=== PATIENT | male | born 1960 | race Caucasian/White ===

== ENCOUNTER 2017-08-26 17:02 | Emergency (ER) | payer MEDICAID ==
[2017-08-26] MEDS ORDERED: LIDOCAINE 2%/EPI MPF (SDV) 20 ML VIAL INJ (18:16)
[2017-08-26] MEDS: IBUPROFEN 800 MG TAB PO (18:16)
[2017-08-26] MEDS ORDERED: DIPHTH/TET/ACEL PERTUSS (ADULT) 0.5 ML VIAL IM (18:30)
[2017-08-26] MEDS ORDERED: DIAZEPAM 2 MG TAB PO (19:00)
== END 2017-08-26 19:32 | disposition home or self-care (01) ==
LOC: FTE 17:02
DX: S61.212A Laceration without foreign body of right middle finger without damage to nail, initial encounter (principal); F17.210 Nicotine dependence, cigarettes, uncomplicated; W26.0XXA Contact with knife, initial encounter; Y92.9 Unspecified place or not applicable
CPT/HCPCS: 12001; 90715; 99282-25

== ENCOUNTER 2017-10-22 12:42 | Emergency (ER) | payer MEDICAID ==
[2017-10-22] MEDS ORDERED: IBUPROFEN 800 MG TAB PO (14:00)
== END 2017-10-22 13:55 | disposition home or self-care (01) ==
LOC: FTE 12:42
DX: K40.90 Unilateral inguinal hernia, without obstruction or gangrene, not specified as recurrent (principal); Z87.891 Personal history of nicotine dependence
CPT/HCPCS: 99283; Z7502

== ENCOUNTER 2017-10-25 10:08 | Emergency (ER) | payer MEDICAID ==
[2017-10-25 10:28] LABS: ADD MAN DIFF? NO
[2017-10-25 10:30] LABS: BASOPHILS % 0.1 % (0.0-2.0); EOSINOPHILS # 0.1 10^3/ul (0.0-0.5); EOSINOPHILS % 1.3 % (0.0-7.0); HEMATOCRIT 48.9 % (42.0-52.0); HEMOGLOBIN 15.6 g/dl (14.0-18.0); LYMPHOCYTES # 0.7 10^3/ul (0.8-2.9); LYMPHOCYTES % 10.3 % (15.0-51.0); MEAN CORPUSCULAR HEMOGLOBIN 27.8 pg (29.0-33.0); MEAN CORPUSCULAR HGB CONC 31.9 g/dl (32.0-37.0); MEAN PLATELET VOLUME 9.8 fl (7.4-10.4); MONOCYTE # 0.5 10^3/ul (0.3-0.9); MONOCYTES % 7.4 % (0.0-11.0); NEUTROPHIL # 5.7 10^3/ul (1.6-7.5); NEUTROPHILS % 80.8 % (39.0-77.0); PLATELET COUNT 310 10^3/UL (140-415); RED BLOOD COUNT 5.62 10^6/ul (4.70-6.10)
[2017-10-25] MEDS: morphine 4 MG/ML VIAL IV (10:30)
[2017-10-25] MEDS: ONDANSETRON 4 MG INJ IV (10:30)
[2017-10-25] MEDS: SOD CHLORIDE 0.9% 1,000 ML IV (10:30)
[2017-10-25 10:51] LABS: ALBUMIN/GLOBULIN RATIO 1.21; ANION GAP 12 (8-16)
[2017-10-25 10:56] LABS: ALANINE AMINOTRANSFERASE 30 IU/L (13-69); ALKALINE PHOSPHATASE 97 IU/L (42-121); ASPARTATE AMINO TRANSFERASE 21 IU/L (15-46); BILIRUBIN,INDIRECT 0.8 mg/dl (0-1.1); BILIRUBIN,TOTAL 0.8 mg/dl (0.2-1.3); BLOOD UREA NITROGEN 13 mg/dl (7-20); CALCIUM 9.4 mg/dl (8.4-10.2); CARBON DIOXIDE 36 mmol/L (21-31); CHLORIDE 99 mmol/L (97-110); CREATININE 0.89 mg/dl (0.61-1.24); GLUCOSE 103 mg/dl (70-220); LIPASE 78 U/L (23-300); POTASSIUM 4.4 mmol/L (3.5-5.1); SODIUM 143 mmol/L (135-144); TOTAL PROTEIN 7.3 g/dl (6.1-8.1)
[2017-10-25 12:31] LABS: URINE BLOOD (Dip) POC Trace-intact (NEGATIVE); URINE GLUCOSE (Dip) POC Negative (NEGATIVE); URINE KETONES (Dip) POC 2+ (NEGATIVE); URINE LEUKOCYTE EST (Dip) POC Negative (NEGATIVE); URINE NITRITE (Dip) POC Negative (NEGATIVE); URINE TOTAL PROTEIN POC 1+ (NEGATIVE)
[2017-10-25 12:31] LABS: URINE PH (Dip) POC 6.5 (5.0-8.5)
[2017-10-25 12:47] LABS: ADD UMIC NO; UR ASCORBIC ACID 40 mg/dL (NEGATIVE); UR BILIRUBIN (Dip) NEGATIVE (NEGATIVE); UR BLOOD (Dip) NEGATIVE (NEGATIVE); UR CLARITY CLEAR (CLEAR); UR COLOR YELLOW (YELLOW); UR GLUCOSE (Dip) NEGATIVE (NEGATIVE); UR KETONES (Dip) 1+ mg/dL (NEGATIVE); UR LEUKOCYTE ESTERASE (Dip) NEGATIVE Leu/ul (NEGATIVE); UR NITRITE (Dip) NEGATIVE (NEGATIVE); UR SPECIFIC GRAVITY (Dip) 1.023 (1.003-1.030); UR TOTAL PROTEIN (Dip) NEGATIVE (NEGATIVE); UR UROBILINOGEN (Dip) NEGATIVE (NEGATIVE)
== END 2017-10-25 14:26 | disposition home or self-care (01) ==
LOC: E/R 10:08
DX: R10.32 Left lower quadrant pain (principal); R11.10 Vomiting, unspecified; Z87.891 Personal history of nicotine dependence
CPT/HCPCS: 36415; 74176; 80053; 81003; 83690; 85025; 96374; 99285-25

== ENCOUNTER 2018-01-15 15:31 | Emergency (ER) | payer OTHER, MEDICAID ==
[2018-01-15] MEDS: HYDROCODONE/APAP (10/325) TAB PO (15:42)
[2018-01-15] MEDS: ONDANSETRON (ODT) 4 MG TAB ODT (15:42)
== END 2018-01-15 16:38 | disposition home or self-care (01) ==
LOC: E/R 15:31
DX: S40.212A Abrasion of left shoulder, initial encounter (principal); S70.212A Abrasion, left hip, initial encounter; F17.210 Nicotine dependence, cigarettes, uncomplicated; V13.4XXA Pedal cycle driver injured in collision with car, pick-up truck or van in traffic accident, initial encounter
CPT/HCPCS: 73030; 73502; 73510; 99284-25

== ENCOUNTER 2018-02-23 11:37 | Observation (INO) | payer OTHER ==
[2018-02-23] MEDS: CEFAZOLIN 2 GM/50 ML (PMX) 50 ML IVPB (07:00)
[2018-02-23] MEDS: SOD CHLORIDE 0.9% 1,000 ML IV ×4 (07:00→23:11)
[~2018-02-23 11:37] MED LIST: LIDOCAINE 2% (SDV) 5 ML INJ; SUCCINYLCHOLINE CHLORIDE 100 MG/5 ML SYG IV
[2018-02-23] MEDS ORDERED: FENTAnyl 50 MCG/ML VIAL ×2 (15:16→16:21)
[2018-02-23] MEDS ORDERED: ROPIVACAINE 0.5 % 30 ML VIAL (15:18)
[2018-02-23] MEDS ORDERED: MEPERIDINE 25 MG INJ IV (15:30)
[2018-02-23] MEDS ORDERED: METOCLOPRAMIDE 10 MG INJ IV (15:30)
[2018-02-23] MEDS ORDERED: FENTAnyl 50 MCG/ML VIAL IV ×2 (15:30)
[2018-02-23] MEDS ORDERED: DIPHENHYDRAMINE 50 MG INJ IV (15:30)
[2018-02-23] MEDS ORDERED: ALBUTEROL 0.083% (NEB) 2.5 MG/3 ML AMP HHN (15:30)
[2018-02-23] MEDS ORDERED: HYDROmorphONE 1 MG/5 ML IV SYRINGE IV ×2 (15:30)
[2018-02-23] MEDS ORDERED: ONDANSETRON 4 MG INJ IV (15:30)
[2018-02-23] MEDS ORDERED: PHENYLephrine (100 MCG/ML) 5ML SYG (15:41)
[2018-02-23] MEDS ORDERED: ROCURONIUM 50 MG INJ (15:44)
[2018-02-23] MEDS ORDERED: PROPOFOL 20 ML (15:44)
[2018-02-23] MEDS ORDERED: CEFAZOLIN 1 GM INJ (15:44)
[2018-02-23] MEDS ORDERED: SUGAMMADEX SODIUM 200 MG/2 ML VIAL IV (15:44)
[2018-02-23] MEDS: POLYMYXIN/BACITRACIN 1L IRRIG IRR (15:56)
[2018-02-23] MEDS ORDERED: HYDROCODONE/APAP (10/325) TAB PO (16:30)
[2018-02-23] MEDS: HYDROmorphONE 1 MG/5 ML IV SYRINGE IV (17:02)
[2018-02-24] MEDS: morphine 2 MG INJ IV (07:22)
[2018-02-24] MEDS: SOD CHLORIDE 0.9% 1,000 ML IV (12:08)
== END 2018-02-24 15:49 | disposition home or self-care (01) ==
LOC: SDS 11:37 → REC 16:56 → PP2 17:43
DX: K40.30 Unilateral inguinal hernia, with obstruction, without gangrene, not specified as recurrent (principal)
CPT/HCPCS: 49507; 87081; 99217; G0378

== ENCOUNTER 2018-08-21 00:47 | Observation (INO) | payer OTHER ==
[2018-08-21] MEDS: ASPIRIN 325 MG TAB PO (02:29)
[2018-08-21] MEDS: morphine 4 MG/ML VIAL IV (02:29)
[2018-08-21] MEDS: ONDANSETRON 4 MG INJ IV (02:29)
[2018-08-21 02:37] LABS: ABNORMAL IP MESSAGE 1; ADD MAN DIFF? NO; BASOPHILS % 0.4 % (0.0-2.0); EOSINOPHILS # 0.4 10^3/ul (0.0-0.5); EOSINOPHILS % 5.7 % (0.0-7.0); HEMATOCRIT 46.6 % (42.0-52.0); HEMOGLOBIN 14.6 g/dl (14.0-18.0); LYMPHOCYTES # 0.5 10^3/ul (0.8-2.9); LYMPHOCYTES % 6.6 % (15.0-51.0); MEAN CORPUSCULAR HEMOGLOBIN 27.2 pg (29.0-33.0); MEAN CORPUSCULAR HGB CONC 31.3 g/dl (32.0-37.0); MEAN CORPUSCULAR VOLUME 86.9 fl (82.0-101.0); MEAN PLATELET VOLUME 9.6 fl (7.4-10.4); MONOCYTE # 0.4 10^3/ul (0.3-0.9); MONOCYTES % 4.9 % (0.0-11.0); NEUTROPHIL # 6.3 10^3/ul (1.6-7.5); PLATELET COUNT 234 10^3/UL (140-415); POSITIVE DIFF @See below; RED BLOOD COUNT 5.36 10^6/ul (4.70-6.10); RED CELL DISTRIBUTION WIDTH 13.5 % (11.5-14.5)
[2018-08-21 02:37] LABS: WHITE BLOOD COUNT 7.7 10^3/ul (4.8-10.8)
[2018-08-21 02:53] LABS: ALANINE AMINOTRANSFERASE 32 IU/L (13-69); ALBUMIN 4.3 g/dl (3.3-4.9); ALBUMIN/GLOBULIN RATIO 1.48; ALKALINE PHOSPHATASE 88 IU/L (42-121); ANION GAP 11 (5-13); ASPARTATE AMINO TRANSFERASE 30 IU/L (15-46); BILIRUBIN,INDIRECT 1.3 mg/dl (0-1.1); BILIRUBIN,TOTAL 1.3 mg/dl (0.2-1.3); BLOOD UREA NITROGEN 18 mg/dl (7-20); CALCIUM 9.5 mg/dl (8.4-10.2); CARBON DIOXIDE 28 mmol/L (21-31); CHLORIDE 102 mmol/L (97-110); CREATININE 1.03 mg/dl (0.61-1.24); Estimated GFR > 60 mL/min (>60); GLUCOSE 119 mg/dl (70-220); POTASSIUM 3.6 mmol/L (3.5-5.1); SODIUM 141 mmol/L (135-144); TOTAL PROTEIN 7.2 g/dl (6.1-8.1)
[2018-08-21 03:01] LABS: B-TYPE NATRIURETIC PEPTIDE 273 PG/ML (0-125)
[2018-08-21 03:06] LABS: TROPONIN-I < 0.012 ng/ml (0.000-0.120)
[2018-08-21] MEDS ORDERED: NITROGLYCERIN (SL) 0.4 MG TAB SL (07:00)
[2018-08-21] MEDS ORDERED: NACL 0.9% 3 ML SYG IV (07:00)
[2018-08-21 08:53] LABS: CREATINE KINASE 214 IU/L (23-200)
[2018-08-21 09:06] LABS: CK INDEX 1.3; TROPONIN-I < 0.012 ng/ml (0.000-0.120)
[2018-08-21 09:10] LABS: CK-MB 2.88 ng/ml (0.0-2.4)
[2018-08-21] MEDS: ACETAMINOPHEN 325 MG TAB PO (09:42)
[2018-08-21] MEDS: ASPIRIN 81 MG TAB PO (09:42)
[2018-08-21] MEDS: HEPARIN 5,000 UNIT/1 ML VIAL SC ×2 (09:44→21:32)
[2018-08-21] MEDS: SOD CHLORIDE 0.9% 500 ML IV (14:00)
[2018-08-21 16:59] LABS: CREATINE KINASE 177 IU/L (23-200)
[2018-08-21 17:12] LABS: CK INDEX 1.1; CK-MB 2.03 ng/ml (0.0-2.4)
[2018-08-21 17:40] LABS: TROPONIN-I < 0.012 ng/ml (0.000-0.120)
[2018-08-21] MEDS: ZOLPIDEM 5 MG TAB PO (22:14)
[2018-08-22] MEDS: ONDANSETRON 4 MG INJ IV (02:07)
[2018-08-22 06:12] LABS: ADD MAN DIFF? NO
[2018-08-22 06:24] LABS: WHITE BLOOD COUNT 7.5 10^3/ul (4.8-10.8)
[2018-08-22 06:25] LABS: BASOPHILS % 0.4 % (0.0-2.0); EOSINOPHILS # 0.6 10^3/ul (0.0-0.5); EOSINOPHILS % 7.7 % (0.0-7.0); HEMOGLOBIN 14.7 g/dl (14.0-18.0); LYMPHOCYTES # 0.8 10^3/ul (0.8-2.9); LYMPHOCYTES % 10.8 % (15.0-51.0); MEAN CORPUSCULAR HEMOGLOBIN 27.2 pg (29.0-33.0); MEAN CORPUSCULAR HGB CONC 31.3 g/dl (32.0-37.0); MEAN CORPUSCULAR VOLUME 86.9 fl (82.0-101.0); MEAN PLATELET VOLUME 9.9 fl (7.4-10.4); MONOCYTE # 0.5 10^3/ul (0.3-0.9); MONOCYTES % 6.3 % (0.0-11.0); NEUTROPHIL # 5.6 10^3/ul (1.6-7.5); NEUTROPHILS % 74.4 % (39.0-77.0); PLATELET COUNT 207 10^3/UL (140-415); RED BLOOD COUNT 5.41 10^6/ul (4.70-6.10); RED CELL DISTRIBUTION WIDTH 13.4 % (11.5-14.5)
[2018-08-22 07:03] LABS: ALANINE AMINOTRANSFERASE 29 IU/L (13-69); ALBUMIN 3.7 g/dl (3.3-4.9); ALBUMIN/GLOBULIN RATIO 1.27; ALKALINE PHOSPHATASE 83 IU/L (42-121); ANION GAP 12 (5-13); ASPARTATE AMINO TRANSFERASE 29 IU/L (15-46); BILIRUBIN,INDIRECT 0.9 mg/dl (0-1.1); BILIRUBIN,TOTAL 0.9 mg/dl (0.2-1.3); BLOOD UREA NITROGEN 14 mg/dl (7-20); CALCIUM 8.8 mg/dl (8.4-10.2); CARBON DIOXIDE 25 mmol/L (21-31); CHLORIDE 100 mmol/L (97-110); CHOLESTEROL 132 mg/dl (100-200); CREATININE 0.93 mg/dl (0.61-1.24); Estimated GFR > 60 mL/min (>60); GLUCOSE 89 mg/dl (70-220); HDL CHOLESTEROL 43 mg/dl (28-71); LDL CHOLESTEROL,CALCULATED 72 mg/dl; MAGNESIUM 1.9 mg/dl (1.7-2.5); POTASSIUM 4.3 mmol/L (3.5-5.1); SODIUM 137 mmol/L (135-144); TOTAL PROTEIN 6.6 g/dl (6.1-8.1); TRIGLYCERIDES 86 mg/dl (0-149)
[2018-08-22 07:12] LABS: HEMOGLOBIN A1C 5.2 % (0-5.9)
[2018-08-22 07:23] LABS: THYROID STIMULATING HORMONE 0.678 MIU/L (0.465-4.680)
[2018-08-22] MEDS: ASPIRIN 81 MG TAB PO (10:11)
[2018-08-22] MEDS: HEPARIN 5,000 UNIT/1 ML VIAL SC (10:16)
[2018-08-22] MEDS: ACETAMINOPHEN 325 MG TAB PO (10:18)
== END 2018-08-22 12:40 | disposition home or self-care (01) ==
LOC: E/R 00:47 → 6WM 04:17
DX: R07.9 Chest pain, unspecified (principal); I27.20 Pulmonary hypertension, unspecified
CPT/HCPCS: 36415; 71045; 80053; 80061; 82550; 82553; 83036; 83735; 83880; 84443; 84484; 85025; 93005; 93306; 96374; 96375; 99285-25; G0378

== ENCOUNTER 2018-12-02 07:30 | Emergency (ER) | payer OTHER ==
[2018-12-02] MEDS: morphine 10 MG INJ IV (07:46)
[2018-12-02] MEDS: morphine 4 MG/ML VIAL IV (08:31)
[2018-12-02] MEDS: BACITRACIN 0.9 GM OINT TOP (09:15)
== END 2018-12-02 10:18 | disposition home or self-care (01) ==
LOC: E/R 07:30
DX: S52.331A Displaced oblique fracture of shaft of right radius, initial encounter for closed fracture (principal); S01.21XA Laceration without foreign body of nose, initial encounter; S89.92XA Unspecified injury of left lower leg, initial encounter; V03.10XA Pedestrian on foot injured in collision with car, pick-up truck or van in traffic accident, initial encounter
CPT/HCPCS: 12011; 73110-RT; 73562; 96374; 96376; 99284-25

== ENCOUNTER 2019-01-24 14:54 | Emergency (ER) | payer OTHER ==
[2019-01-24] MEDS: SOD CHLORIDE 0.9% 1,000 ML IV (16:01)
[2019-01-24] MEDS: KETOROLAC 15 MG INJ IV (16:01)
[2019-01-24 16:16] LABS: ADD MAN DIFF? NO
[2019-01-24 16:18] LABS: WHITE BLOOD COUNT 9.6 10^3/ul (4.8-10.8)
[2019-01-24 16:18] LABS: BASOPHILS % 0.2 % (0.0-2.0); EOSINOPHILS # 0.1 10^3/ul (0.0-0.5); EOSINOPHILS % 1.2 % (0.0-7.0); HEMATOCRIT 48.7 % (42.0-52.0); HEMOGLOBIN 15.6 g/dl (14.0-18.0); LYMPHOCYTES # 1.8 10^3/ul (0.8-2.9); LYMPHOCYTES % 18.3 % (15.0-51.0); MEAN CORPUSCULAR HEMOGLOBIN 27.5 pg (29.0-33.0); MEAN CORPUSCULAR VOLUME 85.9 fl (82.0-101.0); MEAN PLATELET VOLUME 10.2 fl (7.4-10.4); MONOCYTE # 0.9 10^3/ul (0.3-0.9); MONOCYTES % 9.1 % (0.0-11.0); NEUTROPHIL # 6.8 10^3/ul (1.6-7.5); NEUTROPHILS % 70.9 % (39.0-77.0); PLATELET COUNT 260 10^3/UL (140-415); RED BLOOD COUNT 5.67 10^6/ul (4.70-6.10); RED CELL DISTRIBUTION WIDTH 13.4 % (11.5-14.5)
[2019-01-24 16:41] LABS: ALANINE AMINOTRANSFERASE 23 IU/L (13-69); ALBUMIN 4.2 g/dl (3.3-4.9); ALKALINE PHOSPHATASE 100 IU/L (42-121); ANION GAP 11 (5-13); ASPARTATE AMINO TRANSFERASE 19 IU/L (15-46); BILIRUBIN,INDIRECT 1.7 mg/dl (0-1.1); BILIRUBIN,TOTAL 1.7 mg/dl (0.2-1.3); BLOOD UREA NITROGEN 13 mg/dl (7-20); C-REACTIVE PROTEIN 1.5 mg/dl (0.0-0.9); CARBON DIOXIDE 30 mmol/L (21-31); CHLORIDE 95 mmol/L (97-110); CREATININE 0.98 mg/dl (0.61-1.24); Estimated GFR > 60 mL/min (>60); GLUCOSE 88 mg/dl (70-220); LIPASE 112 U/L (23-300); POTASSIUM 4.1 mmol/L (3.5-5.1); SODIUM 136 mmol/L (135-144); TOTAL PROTEIN 7.2 g/dl (6.1-8.1)
== END 2019-01-24 17:46 | disposition home or self-care (01) ==
LOC: E/R 14:54
DX: K62.5 Hemorrhage of anus and rectum (principal); F17.210 Nicotine dependence, cigarettes, uncomplicated; R40.2142 Coma scale, eyes open, spontaneous, at arrival to emergency department; R40.2252 Coma scale, best verbal response, oriented, at arrival to emergency department; R40.2362 Coma scale, best motor response, obeys commands, at arrival to emergency department
CPT/HCPCS: 36415; 80053; 83690; 85025; 86140; 96361; 96374; 99284-25

== ENCOUNTER 2019-02-15 17:50 | Emergency (ER) | payer OTHER | END 2019-02-15 20:03 | disposition left against medical advice (07) | LOC: FTE 17:50 | DX: Z48.02 Encounter for removal of sutures (principal); F17.210 Nicotine dependence, cigarettes, uncomplicated | CPT/HCPCS: 99281; Z7502 ==